=== PATIENT | female | born 1995 | race Caucasian/White ===

== ENCOUNTER 2018-08-16 14:30 | Emergency (ER) | payer BC ==
[2018-08-16] MEDS ORDERED: Morphine 4 MG/ML VIAL ONE (16:10)
== END 2018-08-16 17:25 | disposition home or self-care (01) ==
LOC: ERS 14:30
DX: M54.16 Radiculopathy, lumbar region (principal)
CPT/HCPCS: 96372; J2270

== ENCOUNTER 2018-08-19 07:57 | Outpatient (CLI) | payer BC ==
--- NOTE | 2018-08-19 10:25 | MRI ---
MRI LUMBAR SPINE WITHOUT CONTRAST: Date: 08/19/18 HISTORY: M54.5 low back pain. COMPARISON: None. FINDINGS: The kidneys are without hydronephrosis. No retroperitoneal adenopathy. Paraspinal musculature is symm etric. There is straightening of the lumbar spine. The conus medullaris terminates near the inferior L1 end plate. Levels are as follows: L1-2: Normal disc. No neural foraminal or spinal canal narrowing. L2-3: Normal disc. No neural foraminal or spinal canal narrowing. L3-4: There are small bilateral subforaminal and lateral recess posterior disc osteophyte complexes. Mild facet arthropathy. There is mild bilateral neural foraminal narrowing. L4-5: There is a central and bilateral paracentral posterior disc protrusion narrowing the thecal sa c to approximately 5.0 mm. There is abutment of the bilateral exiting and traversing nerve roots. L5-S1: There is a posterior disc extrusion which is central, bilateral paracentral, and left subfora julia in lateral recess. This abuts the exiting and traversing nerve roots on the left. There is mode rate to severe left and moderate right-sided neural foraminal narrowing. Moderate facet arthropathy. There is mild edema within the L4-5 and L5-S1 spinous processes. IMPRESSION: Moderate to severe spondylosis at L4-5 and L5-S1 with L4-5 disc protrusion and L5-S1 disc extrusion w ith subsequent neural foraminal and spinal canal narrowing. Neurosurgical consultation advised. POS: MADHURI
== END 2018-08-19 07:58 | disposition home or self-care (01) ==
LOC: BICMRI 07:57
PROVIDERS: ATTEND Obstetrics & Gynecology
DX: M54.5 Low back pain (principal); M47.896 Other spondylosis, lumbar region; M47.897 Other spondylosis, lumbosacral region; M48.061 Spinal stenosis, lumbar region without neurogenic claudication; M99.83 Other biomechanical lesions of lumbar region; M51.26 Other intervertebral disc displacement, lumbar region
CPT/HCPCS: 72148